=== PATIENT | male | born 1980 | race Caucasian/White ===

== ENCOUNTER → 2019-05-06 14:02 | Outpatient (CLI) | payer OTHER, SELFPAY ==
[2019-05-06 14:24] LABS: Basophils # 0.1 K/mm3 (0-0.2); Basophils % 0.6 % (0.1-2.0); Eosinophils # 0.3 K/mm3 (0.0-0.4); Eosinophils % 3.4 % (0.1-12.0); Hemoglobin 15.5 g/dL (14.1-18.0); Lymphocytes % 32.2 % (10-50); Mean Corpuscular HGB Conc 32.3 g/dL (31.8-35.4); Mean Corpuscular Hemoglobin 27.2 pg (27.0-31.2); Mean Corpuscular Volume 84.2 fl (80-94); Monocytes # 0.4 K/mm3 (0.1-1.0); Neutrophils # 5.6 K/mm3 (1.8-7.8); Neutrophils % 59.9 % (37.0-80.0); Platelet Count 367 K/mm3 (142-424); Red Cell Distribution Width 12.6 % (11.5-17.5); White Blood Count 9.3 K/mm3 (4.8-10.8)
[2019-05-06 15:25] LABS: Alanine Aminotransferase 37 U/L (21-72); Albumin Level 3.9 g/dL (3.4-5.0); Albumin/Globulin Ratio 1.3 (1.1-1.8); Alkaline Phosphatase 64 U/L (46-116); Anion Gap 11.2 mEq/L (5-15); Aspartate Amino Transferase 18 U/L (15-37); Bilirubin,Total 0.3 mg/dL (0.2-1.0); Blood Urea Nitrogen 14 mg/dL (7-18); Calcium 8.7 mg/dL (8.5-10.1); Carbon Dioxide 30 mmol/L (21.0-32.0); Chloride 106 mmol/L (98-107); Creatinine,Serum 1.04 mg/dL (0.70-1.30); Estimated Glomerular Filt Rate 80 ml/min (>60); GFR (African American) 97 ML/MIN (>60); Glucose 113 mg/dL (74-106); Potassium 4.2 mmoL/L (3.5-5.1); Sodium 143 mmol/L (137-145); Total Protein,Serum 6.9 g/dL (6.4-8.2)
[2019-05-06 16:21] LABS: Erythrocyte Sedimentation Rate 11 mm/hr (0-15)
== END ==
PROVIDERS: Visit Provider Emergency Medicine
DX: R53.83 Other fatigue (principal)
CPT/HCPCS: 36415; 80053; 85025; 85651; 86618

== ENCOUNTER → 2020-08-30 08:05 | Outpatient (POV) | payer OTHER, SELFPAY | PROVIDERS: Visit Provider Dermatology | DX: Z00.00 Encounter for general adult medical examination without abnormal findings (principal) ==

== ENCOUNTER → 2020-08-30 14:43 | Outpatient (CLI) | payer OTHER, SELFPAY ==
[2020-08-30 14:44] LABS: Microscopic, Urine URINE MICROSCOPIC (MICROSCOPIC)
[2020-08-30 14:55] LABS: Appearance,Urine CLEAR (Clear); Bilirubin,Urine Negative (Negative); Blood, Urine Negative (Negative); Color,Urine YELLOW (Yellow); Glucose,Urine (UA) Negative (Negative); Ketones,Urine Negative (Negative); Leukocyte Esterase,Urine Negative (Negative); Nitrate,Urine Negative (Negative); Protein,Urine Negative (Negative); Specific Gravity, Urine 1.025 (1.005-1.030); Urobilinogen,Urine 0.2 EU/dl (0.2)
[2020-08-30 14:58] LABS: Chloride 103 mmol/L (98-107); Sodium 140 mmol/L (136-145)
[2020-08-30 14:59] LABS: Potassium 4.6 mmoL/L (3.5-5.1)
[2020-08-30 15:01] LABS: Alanine Aminotransferase 42 U/L (12-78); Albumin Level 4.6 g/dl (3.5-5.0); Albumin/Globulin Ratio 1.5 (1.1-1.8); Alkaline Phosphatase 71 U/L (38-126); Anion Gap 13.6 mEq/L (5-15); Aspartate Amino Transferase 38 U/L (17-59); Basophils # 0.1 K/mm3 (0-0.2); Basophils % 0.5 % (0.1-2.0); Bilirubin,Total 0.7 mg/dl (0.2-1.3); Blood Urea Nitrogen 14 mg/dl (9-20); Carbon Dioxide 28 mmol/L (22.0-30.0); Eosinophils # 0.4 K/mm3 (0.0-0.4); Eosinophils % 3.8 % (0.1-12.0); Estimated Glomerular Filt Rate 75 ml/min (>60); GFR (African American) 90 ML/MIN (>60); Hematocrit 48.7 % (42.0-52.0); Hemoglobin 16.1 g/dL (14.1-18.0); Lymphocytes # 2.5 K/mm3 (0.7-4.5); Lymphocytes % 27.1 % (10-50); Mean Corpuscular HGB Conc 33.1 g/dL (31.8-35.4); Mean Corpuscular Hemoglobin 27.5 pg (27.0-31.2); Mean Corpuscular Volume 83.1 fl (80-94); Mean Platelet Volume 7.8 fl (7.4-10.4); Monocytes # 0.5 K/mm3 (0.1-1.0); Monocytes % 5.6 % (1.7-9.3); Neutrophils # 5.9 K/mm3 (1.8-7.8); Platelet Count 392 K/mm3 (142-424); Red Blood Count 5.86 M/mm3 (4.60-6.20); Red Cell Distribution Width 13.1 % (11.5-17.5); Total Protein,Serum 7.6 g/dl (6.3-8.2); White Blood Count 9.3 K/mm3 (4.8-10.8)
[2020-08-30 15:02] LABS: Calcium 9.3 mg/dl (8.4-10.2); Glucose 101 mg/dl (74-100)
[2020-08-30 15:07] LABS: C-Reactive Protein 4.9 mg/L (0-4)
[2020-08-30 15:18] LABS: Free T4 (Free Thyroxine) 1.31 ng/dl (0.78-2.19)
[2020-08-30 15:26] LABS: Erythrocyte Sedimentation Rate 4 mm/hr (0-15)
[2020-08-30 15:33] LABS: Thyroid Stimulating Hormone 1.32 uIU/mL (0.465-4.68)
== END ==
PROVIDERS: Visit Provider Emergency Medicine
DX: M79.89 Other specified soft tissue disorders (principal); R60.9 Edema, unspecified
CPT/HCPCS: 80053; 81001; 84439; 84443; 85025; 85651; 86140

== ENCOUNTER → 2020-09-12 08:34 | Outpatient (CLI) | payer OTHER, SELFPAY ==
--- NOTE | 2020-09-12 08:37 | CA_ITS ---
APPROVED REPORT EXAM: Comprehensive 2D, Doppler, and color-flow Echocardiogram Metal Buffer: Tia Hood CRT Ht: 6 ft 0 in Wt: 254lbs BSA: 2.36 BP: 142/82 mmHg Indications: Murmur, Peripheral Edema 2D Dimensions LVOT 2.09 cm (M/F) 1.5-2.5 LA Volume 42.60 mL LA Volume Index 18.10 mL/m2 (M/F) 16-34 M-Mode Dimensions RVDd 2.92 cm (0.9-2.6) LA Diam 3.49 cm (1.9-4.0) LVDd 4.19 cm (3.5-5.7) Ao Diam 3.43 cm (2.0-3.7) LVDs 2.31 cm (3.5-5.7) IVSd 1.41 cm (0.6-1.1) PWd 0.87 cm (0.6-1.1) EF (Teich) 76.60% FS 44.90% EDV (Teich) 78.10 mL ESV (Teich) 18.30 mL LV Diastology E Decel Time 150.00 (160-240 msec) E/A Ratio 1.17 MED E' 9.60 (< 7 cm/sec) MED A' 8.50 cm/s E'/MED E' Ratio 16.01 (>14) LAT E' 14.30 (<10 cm/sec) LAT A' 8.00 cm/s E/LAT E' Ratio 10.75 (>14) Aortic Valve AO Peak GR. 6.10 mmHg Mitral Valve MV E Max Guillermo. 154.00 (40-130 cm/s) MV A Velocity 131.00 (40-130 cm/s) E/A Ratio 1.17 MV Decel. Time 150.00 (160-240 ms) MV PHT 44.00 ms Tricuspid Valve TR P. Velocity 156.00 cm/s RAP Estimate 10.00 mmHg RVSP 19.80 mmHg Left Ventricle Left atrium is normal size, left ventricle is normal size, there is no concentric left ventricular hypertrophy, visually estimated ejection fraction 55% with no regional wall motion abnormality, diastolic parameters are within normal range. Right Ventricle Right atrium and right ventricle are normal size and contractility. Aortic Valve Aortic valve is grossly normal, there is no aortic stenosis or aortic insufficiency. Mitral Valve Mitral valve grossly normal, there is trace mitral regurgitation. Tricuspid Valve Tricuspid grossly normal, there is trace tricuspid regurgitation, tricuspid regurgitation jet velocity is inadequate for calculation of the right ventricular systolic pressure. Pulmonic Valve Pulmonic valve is poorly visualized. Great Vessels Aortic root is normal size. Pericardium No significant pericardial effusion noted. Conclusion 1. Normal left ventricular size, preserved left ventricular systolic function, visually estimated ejection fraction 55% with no regional wall motion abnormality, diastolic parameters are within normal range. 2. Trace mitral and tricuspid regurgitation. 3. No significant pericardial effusion noted. Electronically signed by : Abhijit Solo, 09/12/2020 21:57:12
== END ==
PROVIDERS: PCP Emergency Medicine; Visit Provider Emergency Medicine
DX: R01.1 Cardiac murmur, unspecified (principal)
CPT/HCPCS: 93306

== ENCOUNTER → 2021-01-04 13:59 | Outpatient (CLI) | payer OTHER, SELFPAY | PROVIDERS: PCP Emergency Medicine; Visit Provider Emergency Medicine | DX: G47.33 Obstructive sleep apnea (adult) (pediatric) (principal) | CPT/HCPCS: G0399 ==